=== PATIENT | male | born 1990 | race Caucasian/White ===

== ENCOUNTER 2018-03-28 20:15 | Emergency (ER) | payer BC ==
[2018-03-28] MEDS ORDERED: KETOROLAC TROMETHAMINE 60 MG/2 ML VIAL IM ONE (21:55)
== END 2018-03-28 22:20 | disposition home or self-care (01) ==
LOC: SED 20:15
DX: S39.012A Strain of muscle, fascia and tendon of lower back, initial encounter (principal); J45.909 Unspecified asthma, uncomplicated; X50.0XXA Overexertion from strenuous movement or load, initial encounter; Y93.89 Activity, other specified; Y92.69 Other specified industrial and construction area as the place of occurrence of the external cause; Y99.8 Other external cause status
CPT/HCPCS: 96372; 99283; J1885; 72100-TC

== ENCOUNTER 2020-05-14 20:53 | Emergency (ER) | payer BC ==
[~2020-05-14] VITALS: Ht 170.2 cm; Wt 83.9 kg
[2020-05-14 20:55] VITALS: BP_SYST 135
--- NOTE | 2020-05-14 20:57 | NUR ---
Patient to ER bed 4 to gown for evaluation. Side rails up. Report given to Noemi BALLESTEROS.
--- NOTE | 2020-05-14 20:59 | NUR ---
ER Dr. Rios at triage examining patient.
--- NOTE | 2020-05-14 21:00 | NUR ---
Patient BIB by family. C/O Laceration x today. Patient reported, washed dishes and right thumb cut by accident. A/O,X4, right thumb laceration 1 cm., bleeding control, pain rate 2/10.
--- NOTE | 2020-05-14 21:02 | NUR ---
Saida guevara in [facility] - 05/14/20 at 2108 by [email or web address] Patient to ER bed 4. Side rails up.
[2020-05-14] MEDS ORDERED: LIDOCAINE 1%, 20 ML MDV 20 ML ONE (21:07)
[2020-05-14] MEDS ORDERED: BACITRACIN 1 GM OINT TP ONE ×2 (21:07→21:15)
[2020-05-14] MEDS ORDERED: LIDOCAINE 1% 10 MG/ML, 20 ML MDV INJ ONE (21:15)
--- NOTE | 2020-05-14 21:16 | NUR ---
Patient has a 1 cm laceration to right thumb. Dr. Rios applied sutures using sterile technique. Edges well approximated. Site cleansed with NSS and Providone iodine. Dressing of Non-Adhesive applied to site. No bleeding noted. Pt tolerated well.
[2020-05-14 21:30] VITALS: BP_SYST 135
--- NOTE | 2020-05-14 21:30 | NUR ---
Patient given written and verbal discharge instructions and verbalizes understanding. ER MD discussed with patient the results and treatment provided. Patient in stable condition. ID arm band removed. No Rx given. Patient educated on pain management and to follow up with PMD. Pain Scale 1/10. Opportunity for questions provided and answered.
== END 2020-05-14 21:30 | disposition home or self-care (01) ==
LOC: SED 20:53
DX: S61.011A Laceration without foreign body of right thumb without damage to nail, initial encounter (principal); W26.0XXA Contact with knife, initial encounter; Y93.89 Activity, other specified; Y92.89 Other specified places as the place of occurrence of the external cause; Y99.8 Other external cause status
CPT/HCPCS: 12001; 99282; J2001